=== PATIENT | female | born 1975 | race Caucasian/White ===

== ENCOUNTER → 2016-12-25 | Outpatient (CLI) | payer OTHER ==
[2016-12-25 08:40] LABS: BASOPHILS # (AUTO) 0.11 10*3/UL; EOSINOPHILS # (AUTO) 0.12 10*3/UL; EOSINOPHILS % (AUTO) 2.1 % (0-8); HEMATOCRIT 44.2 % (37.0-47.0); HEMOGLOBIN 14.2 g/dL (12.0-16.0); LYMPHOCYTES # (AUTO) 1.87 10*3/uL; MEAN CORPUSCULAR HEMOGLOBIN 27.7 PG (27-31); MEAN CORPUSCULAR HGB CONC 32.1 g/dL (33-37); MEAN CORPUSCULAR VOLUME 86.3 FL (81-99); MEAN PLATELET VOLUME 10.3 FL (7.4-12.2); MONOCYTES # (AUTO) 0.36 10*3/UL (0.3-0.8); MONOCYTES % (AUTO) 6.4 % (5-15); NEUTROPHILS # (AUTO) 3.13 10*3/UL; NEUTROPHILS % (AUTO) 55.9 % (50-80); RED BLOOD COUNT 5.12 10^6/uL (4.20-5.40)
[2016-12-25 08:53] LABS: PLATELET MORPHOLOGY COMMENT NORMAL MORPHOLOGY (NORM); RBC MORPHOLOGY COMMENT NORMAL MORPHOLOGY (NORM); WBC MORPHOLOGY COMMENT NORMAL MORPHOLOGY (NORM)
[2016-12-25 09:13] LABS: BLOOD UREA NITROGEN 14 mg/dL (7-22); C-REACTIVE PROTEIN 0.5 mg/dL (0.0-0.9); CALCIUM 9.4 mg/dL (8.7-10.7); EST GLOMERULAR FILTRATION > 60 (>60 ml/min/1.73m(2)); SERUM ALBUMIN 3.7 g/dL (3.5-4.8)
[2016-12-25 09:27] LABS: ERYTHROCYTE SEDIMENTATION RATE 2 MM/HR (0-20)
== END ==
LOC: LAB 08:10
PROVIDERS: ATTEND Physician Assistant
DX: R51 Headache (principal)
CPT/HCPCS: 36415; 80053; 84443; 85025; 85652; 86038; 86140